=== PATIENT | male | born 1945 | race Caucasian/White ===

== ENCOUNTER 2016-09-26 10:41 | Outpatient (CLI) | payer MEDICARE, BC ==
--- NOTE | 2016-09-26 14:24 | RAD ---
LUMBAR SPINE 3 VIEWS: HISTORY: Low back pain without trauma. COMPARISON: None. FINDINGS: Five [id number] lumbar-type vertebrae. No fracture malalignment. Mild degenerative disk space height loss at L4-5 and L5-S1. There is a 2 mm L5 over S1 anterolisthesis. SI joints are unremarkable. Mild stool burden. IMPRESSION: Mild degenerative disk space disease at L4-5 and L5-S1 with very mild 2 mm L5 over S1 anterolisthesi s. No acute injury. MRI may be necessary exam for this patient. POS: [facility]
== END 2016-09-26 10:42 | disposition home or self-care (01) ==
LOC: MADRAD 10:41
PROVIDERS: ATTEND Family Medicine
DX: M54.5 Low back pain (principal); M51.37 Other intervertebral disc degeneration, lumbosacral region
CPT/HCPCS: 72100

== ENCOUNTER 2018-02-26 09:38 | Outpatient (CLI) | payer MEDICARE, BC ==
--- NOTE | 2018-02-26 10:36 | RAD ---
2 VIEWS RIGHT HAND: Date: 02/26/18 COMPARISON: None. HISTORY: Arthritis with right hand pain. FINDINGS: Two views of the right hand show no evidence of acute fracture or dislocation. There is joint space n arrowing in the PIP joint of the small finger. No focal soft tissue swelling is seen. There is joint space narrowing in the metacarpophalangeal joints at the index and middle fingers. 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 POS: [facility]
--- NOTE | 2018-02-26 10:38 | RAD ---
2 VIEWS LEFT HAND: Date: 02/26/18 COMPARISON: None. HISTORY: Arthritis and left hand pain. FINDINGS: Three views of the left hand show no evidence of acute fracture or dislocation. There is severe joint space narrowing and osteophyte formation in the first CMC joint. There are small osseous erosions se en in the heads of the index finger and middle finger of metacarpals. There is mild joint space narro wing in the DIP joint of the middle finger. IMPRESSION: Degenerative changes in the left hand as above. POS: [facility]
== END 2018-02-26 09:39 | disposition home or self-care (01) ==
LOC: MADRAD 09:38
PROVIDERS: ATTEND Family Medicine
DX: M19.90 Unspecified osteoarthritis, unspecified site (principal); M19.042 Primary osteoarthritis, left hand; M19.041 Primary osteoarthritis, right hand

== ENCOUNTER 2018-07-13 06:17 | Outpatient (CLI) | payer MEDICARE, BC ==
[2018-07-13 07:07] LABS: Anion Gap 13 mmol/L (10-20); BUN (Urea Nitrogen) 20 mg/dL (8.4-25.7); Calc. Creatinine Clearance 0 mL/min (70-130); Calcium 9.7 mg/dL (7.8-10.44); Carbon Dioxide 24 mmol/L (23-31); Chloride 107 mmol/L (98-107); Estimated GFR-MDRD 63; Glucose 96 mg/dL (83-110); Potassium 4.6 mmol/L (3.5-5.1); Sodium 139 mmol/L (136-145); Uric Acid 7.6 mg/dL (3.5-7.2)
== END 2018-07-13 06:18 | disposition home or self-care (01) ==
LOC: MADLAB 06:17
PROVIDERS: ATTEND Family Medicine
DX: N18.9 Chronic kidney disease, unspecified (principal); M10.9 Gout, unspecified
CPT/HCPCS: 36415; 80048; 84550

== ENCOUNTER 2022-02-14 06:53 | Outpatient (CLI) | payer MEDICARE, BC ==
[2022-02-14 08:50] LABS: #Basophils 0.1 thou/uL (0.0-0.2); #Eosinphils 0.3 thou/uL (0.0-0.7); #Lymphocytes 2.3 thou/uL (1.20-3.40); #Monocytes 0.6 thou/uL (0.11-0.59); #Neutrophils 3.3 thou/uL (1.40-6.50); %Basophils 1.4 % (0.0-1.0); %Eosinophils 5.1 % (0.0-10.0); %Lymphocytes 34.4 % (21.0-51.0); %Monocytes 9.4 % (0.0-10.0); %Neutrophils 49.7 % (42.0-75.0); Hemoglobin 14.2 g/dL (14.0-18.0); Mean Corpuscular HGB CONC 32.2 g/dL (32.0-36.0); Mean Corpuscular Hemoglobin 32.7 pg (27.0-31.0); Mean Corpuscular Volume 101.3 fL (78.0-98.0); Mean Platelet Volume 9.1 fL (7.4-10.4); Platelet Count 241 thou/uL (130-400); RBC Distribution Width 13.5 % (11.5-14.5); Red Blood Cell (RBC) Count 4.35 mill/uL (4.70-6.10); White Blood Cell (WBC) Count 6.5 thou/uL (4.8-10.8)
[2022-02-14 10:23] LABS: ALT (SGPT) 18 U/L (8-55); AST (SGOT) 16 U/L (5-34); Alkaline Phosphatase 75 U/L (40-110); Anion Gap 17 mmol/L (10-20); BUN (Urea Nitrogen) 18 mg/dL (8.4-25.7); Bilirubin, Total 0.8 mg/dL (0.2-1.2); Calc. Creatinine Clearance 0 mL/min (70-130); Calcium 9.4 mg/dL (7.8-10.44); Carbon Dioxide 20 mmol/L (23-31); Cardiac Risk 3.8 (Less than 4.5); Chloride 110 mmol/L (98-107); Cholesterol 192 mg/dl (< 200 Desired); Estimated GFR 67; Globulin 2.7 g/dL (2.4-3.5); Glucose 104 mg/dL (83-110); HDL Cholesterol 50 mg/dL (>60 Neg Risk); LDL Cholesterol, Calculated 124 mg/dL; Potassium 4.5 mmol/L (3.5-5.1); Protein, Total 6.7 g/dL (5.8-8.1); Sodium 142 mmol/L (136-145); Triglycerides 88 mg/dL (Less than 150)
== END 2022-02-14 06:54 | disposition home or self-care (01) ==
LOC: MADLAB 06:53
PROVIDERS: ATTEND Family Medicine
DX: N18.9 Chronic kidney disease, unspecified (principal); E78.00 Pure hypercholesterolemia, unspecified; D75.89 Other specified diseases of blood and blood-forming organs
CPT/HCPCS: 36415; 80053; 80061; 85025

== ENCOUNTER 2022-06-26 13:11 | Emergency (ER) | payer MEDICARE, BC ==
[2022-06-26] MEDS ORDERED: Ketorolac Tromethamine 30 MG/ML VIAL ONE (13:51)
[2022-06-26] MEDS ORDERED: Iopamidol 370 76% 100 ML VIAL ONE (14:06)
[2022-06-26 14:18] LABS: INR-International Normal Ratio 0.9; Prothrombin Time 12.3 sec (12.0-14.7)
[2022-06-26 14:19] LABS: #Basophils 0.1 thou/uL (0.0-0.2); #Eosinphils 0.1 thou/uL (0.0-0.7); #Lymphocytes 1.4 thou/uL (1.20-3.40); #Monocytes 0.8 thou/uL (0.11-0.59); #Neutrophils 8.6 thou/uL (1.40-6.50); %Basophils 1.2 % (0.0-1.0); %Eosinophils 1.1 % (0.0-10.0); %Lymphocytes 12.7 % (21.0-51.0); %Monocytes 6.9 % (0.0-10.0); Hemoglobin 16.1 g/dL (14.0-18.0); MDiff Complete? YES; Macrocytosis SLIGHT = 6-15 cells (100X) (0-5/hpf); Mean Corpuscular HGB CONC 33.1 g/dL (32.0-36.0); Mean Corpuscular Hemoglobin 34.4 pg (27.0-31.0); Mean Platelet Volume 8.4 fL (7.4-10.4); PTT 27.1 sec (22.9-36.1); Platelet Count 293 10x3/uL (130-400); Platelet Morphology Comment Appears Adequate; RBC Distribution Width 12.3 % (11.5-14.5); Red Blood Cell (RBC) Count 4.68 mill/uL (4.70-6.10)
[2022-06-26 14:27] LABS: ALT (SGPT) 22 U/L (8-55); AST (SGOT) 23 U/L (5-34); Albumin 4.6 g/dL (3.4-4.8); Alkaline Phosphatase 92 U/L (40-110); Anion Gap 16 mmol/L (10-20); BUN (Urea Nitrogen) 20 mg/dL (8.4-25.7); Bilirubin, Total 0.7 mg/dL (0.2-1.2); Calc. Creatinine Clearance 0 mL/min (70-130); Carbon Dioxide 22 mmol/L (23-31); Chloride 106 mmol/L (98-107); Estimated GFR 72; Globulin 3.1 g/dL (2.4-3.5); Glucose 101 mg/dL (83-110); Lipase 88 U/L (8-78); Potassium 4.5 mmol/L (3.5-5.1); Protein, Total 7.7 g/dL (5.8-8.1); Sodium 139 mmol/L (136-145)
== END 2022-06-26 15:49 | disposition home or self-care (01) ==
LOC: MADERS 13:11
DX: S22.41XA Multiple fractures of ribs, right side, initial encounter for closed fracture (principal); V89.2XXA Person injured in unspecified motor-vehicle accident, traffic, initial encounter
CPT/HCPCS: 36415; 71260; 80053; 83690; 85025; 85610; 85730; 93005; 96374; J1885; Q9967

== ENCOUNTER 2023-04-14 15:53 | Emergency (ER) | payer MEDICARE, BC | END 2023-04-14 16:45 | disposition home or self-care (01) | LOC: MADERS 15:53 | DX: U07.1 COVID-19 (principal); J06.9 Acute upper respiratory infection, unspecified; I10 Essential (primary) hypertension; Z79.899 Other long term (current) drug therapy | CPT/HCPCS: 87635; 99283 ==

== ENCOUNTER 2023-08-16 07:57 | Emergency (ER) | payer MEDICARE, BC | END 2023-08-16 08:50 | disposition home or self-care (01) | LOC: MADERS 07:57 | DX: J02.9 Acute pharyngitis, unspecified (principal); I10 Essential (primary) hypertension | CPT/HCPCS: 87081; 87430; 87804; 99283 ==

== ENCOUNTER 2024-02-26 14:16 | Emergency (ER) | payer MEDICARE, BC | END 2024-02-26 15:44 | disposition home or self-care (01) | LOC: MADERS 14:16 | DX: M10.9 Gout, unspecified (principal); M25.461 Effusion, right knee; I10 Essential (primary) hypertension | CPT/HCPCS: 99283 ==

== ENCOUNTER 2024-03-10 21:52 | Emergency (ER) | payer MEDICARE, BC ==
[2024-03-10] MEDS ORDERED: Metoclopramide HCl 10 MG (2 mL) VIAL ONE (22:03)
[2024-03-10 22:39] LABS: Hematocrit 44.3 % (42.0-52.0); Hemoglobin 13.8 g/dL (14.0-18.0); Mean Corpuscular HGB CONC 31.2 g/dL (32.0-36.0); Mean Corpuscular Hemoglobin 32.9 pg (27.0-31.0); Mean Corpuscular Volume 105.5 fl (78.0-98.0); Mean Platelet Volume 7.5 fL (7.4-10.4); Platelet Count 209 10x3/uL (130-400); RBC Distribution Width 12.5 % (11.5-14.5); White Blood Cell (WBC) Count 11.5 10x3/uL (4.8-10.8)
[2024-03-10] MEDS ORDERED: Meclizine HCl 25 MG TAB ONE (22:40)
[2024-03-10 22:49] LABS: ALT (SGPT) 16 U/L (8-55); AST (SGOT) 14 U/L (5-34); Albumin 3.8 g/dL (3.4-4.8); Alkaline Phosphatase 67 U/L (40-110); Anion Gap 14 mmol/L (10-20); BUN (Urea Nitrogen) 23 mg/dL (8.4-25.7); Bilirubin, Total 0.3 mg/dL (0.2-1.2); Calc. Creatinine Clearance 0 mL/min (70-130); Calcium 9.5 mg/dL (7.8-10.44); Carbon Dioxide 23 mmol/L (23-31); Chloride 108 mmol/L (98-107); Estimated GFR 51; Globulin 2.8 g/dL (2.4-3.5); Glucose 126 mg/dL (83-110); Potassium 4.1 mmol/L (3.5-5.1); Protein, Total 6.6 g/dL (5.8-8.1); Sodium 141 mmol/L (136-145)
[2024-03-10 22:50] LABS: Anisocytosis SLIGHT = 6-15 cells (100X) (0-5/hpf); Eosinophils 1 % (0-10); Lymphocytes 19 % (21-51); MDiff Complete? YES; Monocytes 4 % (0-10); Neutrophil 74 % (42-75); Reactive Lymphocytes 2 % (0-10); Troponin I 0.011 ng/mL (< 0.028)
[2024-03-10 22:51] LABS: Macrocytosis MODERATE=16-30 cells (100X) (0-5/hpf); Platelet Adequacy Comment Appears Adequate
== END 2024-03-10 23:57 | disposition home or self-care (01) ==
LOC: MADERS 21:52
DX: H81.392 Other peripheral vertigo, left ear (principal); E86.0 Dehydration; R11.0 Nausea; J18.9 Pneumonia, unspecified organism; I10 Essential (primary) hypertension
CPT/HCPCS: 36415; 70450; 71045; 80053; 84484; 85025; 85379; 93005; 96361; 96374; J2765